=== PATIENT | female | born 1990 | race Caucasian/White ===

== ENCOUNTER → 2021-07-27 11:29 | Outpatient (CLI) | payer OTHER, SELFPAY ==
[2021-07-27 11:57] LABS: COVID19 -Nasal RAPID Negative (Negative)
== END ==
PROVIDERS: Visit Provider Nurse Practitioner
DX: Z20.822 Contact with and (suspected) exposure to COVID-19 (principal); R09.81 Nasal congestion
CPT/HCPCS: 87635

== ENCOUNTER → 2021-12-30 09:38 | Outpatient (CLI) | payer OTHER, SELFPAY ==
[2021-12-30 12:51] LABS: COVID19 - ADMIT (NP swab/PCR) Negative (Negative)
== END ==
PROVIDERS: PCP Family Medicine; Visit Provider Family Medicine Sleep Medicine
DX: Z20.822 Contact with and (suspected) exposure to COVID-19 (principal)
CPT/HCPCS: C9803; U0003; U0005

== ENCOUNTER → 2022-04-30 14:07 | Outpatient (CLI) | payer OTHER, SELFPAY ==
[2022-04-30 15:39] LABS: COVID-19 CEPHEID PCR (VTM/NP) Negative (Negative)
[2022-04-30 16:26] LABS: Influenza A - CEPHEID Flu A NEGATIVE (NEGATIVE); Influenza B - CEPHEID Flu B NEGATIVE (NEGATIVE)
== END ==
PROVIDERS: PCP Family Medicine; Visit Provider Physician Assistant
DX: J31.2 Chronic pharyngitis (principal); R05.9 Cough, unspecified; R50.9 Fever, unspecified
CPT/HCPCS: 0240U; 87070

== ENCOUNTER → 2022-05-15 11:08 | Outpatient (CLI) | payer OTHER, SELFPAY | PROVIDERS: PCP Family Medicine; Visit Provider Student in an Organized Health Care Education/Training Program | DX: N34.3 Urethral syndrome, unspecified (principal); N89.8 Other specified noninflammatory disorders of vagina | CPT/HCPCS: 87086; 87210 ==

== ENCOUNTER 2022-06-12 09:38 | Emergency (ER) | payer OTHER, SELFPAY ==
[2022-06-12 09:46] VITALS: BP 125/80; PULSE 82; RESP 16; TEMP 36.6; O2SAT 97; BMI 25.0
--- NOTE | 2022-06-12 11:36 | PC.NURSE ---
states she is allergic to the low dose aspirin and not the full dose (325 mg) to help her nasal polyps.
--- NOTE | 2022-06-12 11:47 | ED.HEATRA ---
HPI - Head Injury General Chief complaint: Head Injury Stated complaint: Hit head- nausea/vomiting- takes thinners Time Seen by Provider: 06/12/22 11:41 History of Present Illness HPI Narrative: Patient is a 31-year-old female with history of nasal polyps on aspirin presenting after head injury last night. 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 She did not lose consciousness but instantly felt nauseous and hit her head quite hard. She has had a persistent headache all night and all day. She continues to feel nauseous. She has no numbness tingling or weakness. Related Data Home Medications Medication Instructions Recorded Confirmed albuterol sulfate 90 mcg/actuation 2 puff inhalation Q6H PRN 10/06/21 04/30/22 aerosol inhaler aspirin 325 mg tablet 325 mg PO DAILY 10/06/21 04/30/22 dupixant PO Q2W 10/06/21 04/30/22 fluticasone 500 mcg-salmeterol 50 1 inh inhalation DAILY 10/06/21 04/30/22 mcg/dose blistr powdr for inhalation (Advair Diskus) fluticasone propionate 50 2 spray intranasal DAILY 10/06/21 04/30/22 mcg/actuation nasal spray,suspension (Flonase Allergy Relief) levonorgestrel 20 mcg/24 hours (7 intrauterine 10/06/21 04/30/22 yrs) 52 mg intrauterine device (Mirena) loratadine 10 mg tablet (Claritin) 10 mg PO DAILY 10/06/21 04/30/22 Previous Rx's Medication Instructions Recorded citalopram 20 mg tablet 20 mg PO DAILY #90 tabs 10/06/21 methylprednisolone 4 mg tablets in See Rx Instructions PO PER PKG DIR 04/30/22 a dose pack (Medrol (Marco)) #21 ea fluconazole 150 mg tablet 150 mg PO Q3D 2 doses #2 tabs 05/11/22 fluconazole 150 mg tablet 150 mg PO Q3D #5 tabs 05/15/22 ondansetron 4 mg disintegrating 4 mg PO Q8H PRN nausea and 06/12/22 tablet vomiting #10 tabs Allergies Allergy/AdvReac Type Severity Reaction Status Date / Time aspirin Allergy Severe Head Verified 05/15/22 11:15 pressure Review of Systems Review of Systems Narrative: GENERAL: Denies chills, fatigue, malaise, fever, sweats, travel HEENT: Denies sinus pain, ear pain, sore throat, difficulty swallowing, neck pain RESPIRATORY: Denies dyspnea, cough, wheezing, hemoptysis, sputum. CARDIOVASCULAR: Denies chest pain, palpitations, orthopnea, edema GASTROINTESTINAL: + nausea : Denies dysuria, frequency, incontinence, hematuria, urinary retention, flank pain. MUSCULOSKELETAL: Denies weakness, joint pain, or bony pain SKIN: No rash, no erythema, no pruritus NEUROLOGIC:+ head injury Denies weakness, dizziness, headache, numbness, change in speech, confusion PSYCHIATRIC: No concerning psychosocial issues. 12 point review of systems is negative except for those stated above and HPI Patient History Medical History Anxiety Asthma Nasal polyposis Social History Smoking Status: Never smoker Smoking Status: Never smoker Exam Initial Vital Signs Initial Vital Signs: Vital Signs Temperature 97.9 F 06/12/22 09:46 Pulse Rate 82 06/12/22 09:46 Respiratory Rate 16 06/12/22 09:46 Blood Pressure 125/80 06/12/22 09:46 Pulse Oximetry 97 06/12/22 09:46 Oxygen Delivery Method 06/12/22 09:46 GENERAL: Alert pleasant 31-year-old and in no acute distress. HEENT: Head atraumatic, no contusions depressions abrasion laceration EOMI, pupils reactive, face symmetric, moist mucous membranes EARS: Tympanic membranes visualized, no erythema or bulging, no hemotympanum CARDIOVASCULAR: Regular rate and rhythm without murmurs, rubs or gallops. RESPIRATORY: Breath sounds equal bilaterally, no wheezes rales or rhonchi. ABDOMEN: Soft, nontender. Normoactive bowel sounds all 4 quadrants. No guarding or rebound. EXTREMITIES: Normal range of motion, no clubbing or edema. Neurovascularly intact NEUROLOGICAL: Alert and oriented x4.Normal gait and speech. Cranial nerves II through XII grossly intact. 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 Scores [employer] [place] coma scale eye opening: Spontaneous [place] coma scale verbal response: Orientated [place] coma scale motor response: Obey commands [place] coma scale total score: 15 Course Orders Ordered: ED Orders 06/12/22 11:53 CT head/brain wo con Stat Discontinued Medications Acetaminophen (Acetaminophen 325 Mg Tablet) 975 mg PO NOW ONE Stop: 06/12/22 11:54 Last Admin: 06/12/22 12:11 Dose: 975 mg Documented By: LETA Ondansetron HCl (Ondansetron 4 Mg Odt) 4 mg SL NOW ONE Stop: 06/12/22 11:54 Last Admin: 06/12/22 12:11 Dose: 4 mg Documented By: LETA Vital Signs Vital signs: Vital Signs - 8 hr 06/12/22 12:34 Respiratory Rate 18 Blood Pressure 134/59 L MDM - Head Injury Imaging Data CT scan - head: Radiologist's Impression: Carmella Roy MR#: [id number] : 1990 Acct:[id number] Age/Sex: 31 / F Date of Service: 06/12/22 Loc: ED Accession Number: [id number] ?? Procedure: CT head/brain wo con Ordering Provider: Regine Fang D.O. PROCEDURE:? CT HEAD/BRAIN WO CON ? INDICATIONS:? head injury ? TECHNIQUE:? Noncontrast 4.5 mm thick angled axial sections acquired from the foramen magnum to the vertex, with coronal and sagittal reformats.? For radiation dose reduction, the following was used:? automated exposure control, adjustment of mA and/or kV according to patient size.? ? COMPARISON:? None. ? FINDINGS:? Image quality:? Excellent.? ? CSF spaces:? Basal cisterns are patent.? No extra-axial fluid collections.? Ventricles are normal in size and shape.? ? Brain:? No midline shift.? No intracranial masses or hemorrhage.? Hensley-white matter interface is normal.? Ossification can be seen along the anterior falx. ? Skull and face:? Calvarium and visualized facial bones are intact, without suspicious lesions.? ? Sinuses:? Visualized sinuses and mastoids are clear.? ? IMPRESSION:? No acute intracranial hemorrhage is seen.? ? No acute intracranial process is seen.? ? ? Dictated by: Ha Sahu M.D. on 06/12/2022 at 11:12 ? ? MDM Narrative Medical decision making narrative: Patient has worsening headache persistent nausea. Seems low mechanism for any intracranial hemorrhage however she is on aspirin. Head CT is fortunately negative. She is no cranial nerve deficits. Concussion syndrome is likely. Patient is reassured. Given strict return precautions and discharged home. Discharge Plan Departure Patient Disposition: Home Clinical Impression: Concussion syndrome Activity Restrictions/Additional Instructions: *You have been diagnosed with concussion syndrome *What to do: Says that he hit her head pretty hard. Is likely have a very minor concussion. Recommend medications and close monitoring. CT scan today is negative. *Continue to take medications as directed Zofran 4 mg every 8 hours needed for nausea vomiting Tylenol 1000 mg every 6 hours if needed for [id number] pain *Follow up with your primary care provider in 2-3 days or call [phone] *Return to ER if you should have increasing headache persistent vomiting weakness numbness tingling or any new, worsening or concerning symptoms Prescriptions: New ondansetron 4 mg tablet,disintegrating 4 mg PO Q8H PRN (Reason: nausea and vomiting) Qty: 10 0RF No Action methylprednisolone [Medrol (Marco)] 4 mg tablets,dose pack See Rx Instructions PO PER PKG DIR Qty: 21 0RF Rx Instructions: PO PER PKG DIR dupixant PO Q2W fluticasone propion-salmeterol [Advair Diskus] 500-50 mcg/dose blister with device 1 inh inhalation DAILY fluconazole 150 mg tablet 150 mg PO Q3D Qty: 5 0RF Rx Instructions: may repeat second dose 72 hrs after first dose if symptoms persist fluconazole 150 mg tablet 150 mg PO Q3D Qty: 2 0RF Rx Instructions: may repeat second dose 72 hrs after first dose if symptoms persist aspirin 325 mg tablet 325 mg PO DAILY loratadine [Claritin] 10 mg tablet 10 mg PO DAILY fluticasone propionate [Flonase Allergy Relief] 50 mcg/actuation spray,suspension 2 spray intranasal DAILY Rx Instructions: administer into each nostril albuterol sulfate 90 mcg/actuation HFA aerosol inhaler 2 puff inhalation Q6H PRN Mirena 20 mcg/24 hours (7 yrs) 52 mg intrauterine device intrauterine citalopram 20 mg tablet 20 mg PO DAILY Qty: 90 3RF Referrals: Samson Whitaker MD [Primary Care Provider] - Visit Report Forms: Patient Portal/API
--- NOTE | 2022-06-12 11:53 | DI.CT.S_ITS ---
PROCEDURE: CT HEAD/BRAIN WO CON INDICATIONS: head injury TECHNIQUE: Noncontrast 4.5 mm thick angled axial sections acquired from the foramen magnum to the vertex, with coronal and sagittal reformats. For radiation dose reduction, the following was used: automated exposure control, adjustment of mA and/or kV according to patient size. COMPARISON: None. FINDINGS: Image quality: Excellent. CSF spaces: Basal cisterns are patent. No extra-axial fluid collections. Ventricles are normal in size and shape. Brain: No midline shift. No intracranial masses or hemorrhage. Hensley-white matter interface is normal. Ossification can be seen along the anterior falx. Skull and face: Calvarium and visualized facial bones are intact, without suspicious lesions. Sinuses: Visualized sinuses and mastoids are clear. IMPRESSION: No acute intracranial hemorrhage is seen. No acute intracranial process is seen. Dictated by: Ha Sahu M.D. on 06/12/2022 at 11:12 Approved by: Ha Sahu M.D. on 06/12/2022 at 11:13
[2022-06-12] MEDS: ONDANSETRON 4 MG ODT SL (12:11)
[2022-06-12] MEDS: ACETAMINOPHEN 325 MG TABLET 975 MG PO (12:11)
[2022-06-12 12:34] VITALS: BP 134/59; RESP 18
== END 2022-06-12 12:35 | disposition home or self-care (01) ==
PROVIDERS: Emergency Provider Emergency Medicine; PCP Family Medicine
DX: F07.81 Postconcussional syndrome (principal); W22.8XXA Striking against or struck by other objects, initial encounter; Z79.82 Long term (current) use of aspirin
CPT/HCPCS: 70450; 99283; 99284

== ENCOUNTER → 2022-07-17 07:40 | Outpatient (CLI) | payer OTHER, SELFPAY ==
--- NOTE | 2022-08-01 16:57 | PM.CARDMON.1 ---
Clinical Implementation Specialist Report Referral & Results Date Patient Seen: 07/17/22 Requesting provider: Dann Marquez Indication: Palpitations Duration of monitoring (days): 7 Diary information: There were 9 patient triggered events and 6 patient diary entries Patient triggered events were variably associated with (within 45 seconds) sinus rhythm and PACs Patient diary events were associated with sinus rhythm only Data: Minimum heart rate identified was 47 beats per minute at 06:31 on 07/18/2022 Maximum heart rate was sinus and was 171 beats per minute at 23:16 on 07/23/2022 Less than 1% of identified beats were ventricular or supraventricular ectopic in origin, which would classify them as rare. There was 1 very brief run of SVT that was 5 beats in duration at a rate of 154 beats per minute There were no pauses of 3 seconds or longer, or episodes of atrial fibrillation identified on this study Impression: 6+ day cardiac technologist demonstrating rare PACs and PVCs. Based on patient events patient's sense of palpitations most likely associated with rare PACs Clinical correlation suggested
== END ==
PROVIDERS: PCP Family Medicine; Referring Provider Pediatrics; Visit Provider Pediatrics
DX: R00.2 Palpitations (principal)
CPT/HCPCS: 93242; 93244

== ENCOUNTER 2023-01-01 21:32 | Emergency (ER) | payer OTHER, SELFPAY ==
[2023-01-01 21:54] VITALS: BP 122/79; PULSE 122; RESP 20; TEMP 36.6; O2SAT 98; BMI 26.3
[2023-01-01 22:09] VITALS: BP 138/69; RESP 19
[2023-01-01] MEDS: ONDANSETRON 4 MG/2 ML INJ IV (22:15)
[2023-01-01] MEDS: SODIUM CHLORIDE 0.9% 1,000 ML 1000 ML IV ×2 (22:15→23:15)
[2023-01-01 22:24] LABS: Add Manual Diff / Slide Review NO; Basophils Absolute Auto 100 /uL (0-100); Basophils Percent Auto 0.9 % (0-2); Eosinophils Absolute Auto 300 /uL (0-450); Eosinophils Percent Auto 3.4 % (2-4); Lymphocytes Absolute Auto 600 /uL (1100-4500); Lymphocytes Percent Auto 7.4 % (25-40); Mean Corpuscular HGB Conc 34.2 % (30-36); Mean Corpuscular Hemoglobin 30.1 PG (26-34); Mean Corpuscular Volume 87.8 fL (80-100); Monocytes Absolute Auto 300 /uL (0-900); Monocytes Percent Auto 4.4 % (3-14); Neutrophils Absolute Auto 6300 /uL (1500-7000); Neutrophils Percent Auto 83.9 % (50-75); Platelet Count 186 X10^3/uL (150-400); Red Blood Cell Count 4.67 X10^6/uL (4.0-5.2); Red Cell Distribution Width 12.3 % (11.6-14.8); White Blood Cell Count 7.5 X10^3/uL (4.5-11.0)
[2023-01-01 22:30] VITALS: BP 124/83; PULSE 82; RESP 22
[2023-01-01 22:32] LABS: Alanine Aminotransferase 17 IU/L (<35); Albumin 4.5 g/dL (3.5-5.0); Albumin Globulin Ratio 1.7 (1.0-2.8); Alkaline Phosphatase 63 U/L (38-126); Aspartate Aminotransferase 25 IU/L (14-36); BUN Creatinine Ratio 20.3 (6-22); Bilirubin Total 0.9 mg/dL (0.2-1.3); Blood Urea Nitrogen 12 mg/dL (7-17); Calcium 8.8 mg/dL (8.4-10.2); Carbon Dioxide 23 mmol/L (22-32); Chloride 102 mmol/L (98-107); Estimated Glomerular Filt Rate > 60 mL/min (>60); Globulin 2.7 g/dL (1.7-4.1); Glucose 116 mg/dL (70-100); HEMOLYSIS 18 (0-50); Lipase 32 U/L (23-300); Potassium 3.6 mmol/L (3.4-5.1); Sodium 137 mmol/L (137-145); Total Protein 7.2 g/dL (6.3-8.2)
[2023-01-01 22:36] LABS: Bacteria Urine Many (>30); RBC Urine None Seen (0-5/HPF); Squamous Epithelial Cell Urine 10-30 /HPF (0-5/HPF); WBC Urine 1-5/HPF (0-5/HPF)
[2023-01-01 22:37] LABS: Culture Indicated Urine Specimen Cultured
[2023-01-01 23:00] VITALS: BP 123/67; PULSE 83; RESP 15
[2023-01-01] MEDS: PANTOPRAZOLE 40 MG VIAL IV (23:15)
[2023-01-01 23:22] LABS: Influenza A - CEPHEID Flu A NEGATIVE (NEGATIVE); Influenza B - CEPHEID Flu B NEGATIVE (NEGATIVE); Respiratory Syncytial Virus Negative (Negative)
[2023-01-01 23:33] LABS: COVID-19 CEPHEID 4-PLEX PCR Negative (Negative)
--- NOTE | 2023-01-01 23:34 | PC.NURSE ---
Pt reporting substernal, burning chest pain that is relieved slightly with belching. Provider aware.
[2023-01-01 23:36] VITALS: PULSE 98; RESP 20
[2023-01-01 23:44] VITALS: BP 118/64; PULSE 92; RESP 16; O2SAT 98
[2023-01-02] VITALS (13 sets, daily range): BP systolic 100–121; BP diastolic 55–73; PULSE 68–111; RESP 14; O2SAT 95–99
--- NOTE | 2023-01-02 00:07 | ED.ABDPAIN ---
HPI - Abdominal Pain General Chief Complaint: Abdominal Pain Stated Complaint: abd. pain/vomiting/diarrhea Time Seen by Provider: 01/01/23 21:37 Source: patient Mode of arrival: Ambulatory History of Present Illness HPI narrative: 32-year-old female nonsmoker with history of asthma, anxiety presents with her significant other and a chief complaint of relatively sudden onset generalized abdominal pain with multiple episodes of nausea, vomiting and diarrhea over the course of the day. She states that her discomfort is generalized, perhaps worse in the lower part of her abdomen and seems to build until she has either an episode of vomiting or diarrhea which point it improves for 5-15 minutes before building again. She denies any history of the same. She states she is not been on antibiotics recently, denies travel, bad food or exposure to other ill persons. She has become dizzy, weak and lightheaded. She feels fatigued and generally unwell Related Data Home Medications Medication Instructions Recorded Confirmed aspirin 325 mg tablet 325 mg PO DAILY 10/06/21 07/06/22 fluticasone 500 mcg-salmeterol 50 1 inh inhalation DAILY 10/06/21 07/06/22 mcg/dose blistr powdr for inhalation (Advair Diskus) fluticasone propionate 50 2 spray intranasal DAILY 10/06/21 07/06/22 mcg/actuation nasal spray,suspension (Flonase Allergy Relief) levonorgestrel 20 mcg/24 hours (8 intrauterine 10/06/21 07/06/22 yrs) 52 mg intrauterine device (Mirena) loratadine 10 mg tablet (Claritin) 10 mg PO DAILY 10/06/21 07/06/22 dupilumab 300 mg/2 mL subcutaneous syringe SUBCUT 06/22/22 07/06/22 syringe (Dupixent) Previous Rx's Medication Instructions Recorded methylprednisolone 4 mg tablets in See Rx Instructions PO PER PKG DIR 04/30/22 a dose pack (Medrol (Marco)) #21 ea cyclobenzaprine 5 mg tablet 5 mg PO TID PRN muscle spasm #20 07/06/22 tabs albuterol sulfate 90 mcg/actuation 2 puff inhalation Q6H PRN 08/03/22 aerosol inhaler bronchospasm #8.5 grams citalopram 20 mg tablet 20 mg PO DAILY #90 tabs 08/31/22 ondansetron 4 mg disintegrating 4 mg PO TID-QID PRN nausea and 01/02/23 tablet vomiting #10 tabs pantoprazole 40 mg tablet,delayed 40 mg PO DAILY #30 tabs 01/02/23 release (Protonix) Allergies Allergy/AdvReac Type Severity Reaction Status Date / Time aspirin Allergy Severe Head Verified 06/22/22 09:49 pressure ibuprofen [From Motrin] Allergy Verified 01/01/23 21:54 NSAIDS (Non-Steroidal Allergy Verified 01/01/23 21:54 Anti-Inflamma Review of Systems Review of Systems Narrative: GENERAL: See HPI HEENT: Denies sinus pain, ear pain, sore throat, difficulty swallowing, dizziness. RESPIRATORY: Denies dyspnea, cough, wheezing, hemoptysis, sputum. CARDIOVASCULAR: Denies chest pain, palpitations, orthopnea, edema, GASTROINTESTINAL: See HPI : Denies dysuria, frequency, incontinence, hematuria, urinary retention. MUSCULOSKELETAL: denies weakness, joint pain, or bony pain SKIN: Denies rash, skin lesions, or other NEUROLOGIC: Denies weakness, headache, numbness, change in speech, confusion, seizures, incoordination. PSYCHIATRIC: No concerning psychosocial issues. 12 point review of systems is negative except for those stated above Patient History Medical History Anxiety Asthma Nasal polyposis Social History Smoking Status: Never smoker Smoking Status: Never smoker alcohol intake frequency: holidays/special occasions only Substance Use Type: does not use Exam Narrative Exam Narrative: GENERAL: [32] year old patient appears stated age. Well-developed patient, in mild distress. Obviously feeling unwell HEAD: Atraumatic. Normocephalic. EYES: Pupils equal round and reactive. Extraocular motions intact. No scleral icterus. No injection or drainage. ENT: Dry mucous membranes Nose without bleeding, purulent drainage. Throat without erythema, tonsillar hypertrophy or exudate. Airway patent. NECK: Trachea midline. Non tender CARDIOVASCULAR: Tachycardic but regular rhythm without murmurs, gallops, or rubs. RESPIRATORY: Clear to auscultation. Breath sounds equal bilaterally. No wheezes, rales, or rhonchi. GASTROINTESTINAL: Abdomen soft, increased bowel sounds throughout, generalized tenderness EXTREMITIES: No edema or joint tenderness. BACK: Nontender without deformity or crepitance. No flank tenderness. NEURO: AOx3. SKIN: No rash or erythema of visible areas Initial Vital Signs Initial Vital Signs: Vital Signs Temperature 97.9 F 01/01/23 21:54 Pulse Rate 122 H 01/01/23 21:54 Respiratory Rate 20 01/01/23 21:54 Blood Pressure 122/79 01/01/23 21:54 Pulse Oximetry 98 01/01/23 21:54 Oxygen Delivery Method 01/01/23 21:54 Course Orders Ordered: ED Orders 01/01/23 22:03 GI Panel (Film Array) Stat EKG-12 Lead Stat 01/01/23 22:10 Urine Culture Stat Urine Microscopic Stat 01/01/23 22:15 Complete Blood Count AUTO DIFF Stat Comprehensive Metabolic Panel Stat Lipase Stat 01/01/23 22:41 Covid-19 + FLU A/B + RSV - PCR Stat 01/02/23 00:50 CT abdomen pelvis w con Stat Ondansetron HCl (Ondansetron 4 Mg Odt) 4 mg PO NOW PRN PRN Reason: Nausea And Vomiting Last Admin: 01/02/23 03:49 Dose: 4 mg Documented By: MARIANA Ondansetron HCl (Ondansetron 4 Mg/2 Ml Inj) 4 mg IV NOW PRN PRN Reason: Nausea And Vomiting Last Admin: 01/01/23 22:15 Dose: 4 mg Documented By: INES Discontinued Medications Sodium Chloride (Normal Saline 0.9%) 1,000 mls @ 1,000 mls/hr IV BOLUS ONE Stop: 01/01/23 23:03 Last Infusion: 01/01/23 23:13 Dose: 0 mls/hr Documented By: Admin: 01/01/23 22:15 Dose: 1,000 mls/hr Documented By: INES Sodium Chloride (Normal Saline 0.9%) 1,000 mls @ 1,000 mls/hr IV BOLUS ONE Stop: 01/02/23 00:08 Last Infusion: 01/02/23 00:18 Dose: 0 mls/hr Documented By: Admin: 01/01/23 23:15 Dose: 1,000 mls/hr Documented By: INES Lactated Ringer's (Lactated Ringers) 1,000 mls @ 1,000 mls/hr IV BOLUS ONE Stop: 01/02/23 01:49 Last Infusion: 01/02/23 02:20 Dose: 0 mls/hr Documented By: Admin: 01/02/23 00:58 Dose: 1,000 mls/hr Documented By: MARIANA Ondansetron HCl (Ondansetron 4 Mg Odt Prepack) 1 bottle MISC SEEINSTR ONE Stop: 01/02/23 03:45 Pantoprazole Sodium (Pantoprazole 40 Mg Vial) 40 mg IV NOW ONE Stop: 01/01/23 23:10 Last Admin: 01/01/23 23:15 Dose: 40 mg Documented By: INES Reevaluation(s) Reevaluation #1: Patient feeling better after fluids, still lightheaded and weak, still tachycardic, repeat fluids ordered Vital Signs Vital signs: Vital Signs - 8 hr 01/01/23 21:54 01/01/23 22:09 01/01/23 22:09 Temperature 97.9 F Pulse Rate 122 H Pulse Rate [Orthostatic Lying] Pulse Rate [Orthostatic Sitting] Pulse Rate [Orthostatic Standing] Respiratory Rate 20 19 Blood Pressure 122/79 138/69 Blood Pressure [Orthostatic Lying] Blood Pressure [Orthostatic Sitting] Blood Pressure [Orthostatic Standing] Pulse Oximetry 98 Oxygen Delivery Method Room Air 01/01/23 22:30 01/01/23 22:30 01/01/23 23:00 Temperature Pulse Rate 82 Pulse Rate [Orthostatic Lying] Pulse Rate [Orthostatic Sitting] Pulse Rate [Orthostatic Standing] Respiratory Rate 22 Blood Pressure 124/83 123/67 Blood Pressure [Orthostatic Lying] Blood Pressure [Orthostatic Sitting] Blood Pressure [Orthostatic Standing] Pulse Oximetry Oxygen Delivery Method 01/01/23 23:00 01/01/23 23:36 01/01/23 23:44 Temperature Pulse Rate 83 98 H Pulse Rate [Orthostatic Lying] Pulse Rate [Orthostatic Sitting] Pulse Rate [Orthostatic Standing] Respiratory Rate 15 20 Blood Pressure 118/64 Blood Pressure [Orthostatic Lying] Blood Pressure [Orthostatic Sitting] Blood Pressure [Orthostatic Standing] Pulse Oximetry Oxygen Delivery Method 01/01/23 23:44 01/02/23 00:00 01/02/23 00:30 Temperature Pulse Rate 92 H 94 H 95 H Pulse Rate [Orthostatic Lying] Pulse Rate [Orthostatic Sitting] Pulse Rate [Orthostatic Standing] Respiratory Rate 16 Blood Pressure Blood Pressure [Orthostatic Lying] Blood Pressure [Orthostatic Sitting] Blood Pressure [Orthostatic Standing] Pulse Oximetry 98 98 Oxygen Delivery Method 01/02/23 01:00 01/02/23 01:56 01/02/23 02:00 Temperature Pulse Rate 95 H 68 86 Pulse Rate [Orthostatic Lying] Pulse Rate [Orthostatic Sitting] Pulse Rate [Orthostatic Standing] Respiratory Rate 14 Blood Pressure Blood Pressure [Orthostatic Lying] Blood Pressure [Orthostatic Sitting] Blood Pressure [Orthostatic Standing] Pulse Oximetry 95 Oxygen Delivery Method 01/02/23 02:19 01/02/23 02:19 01/02/23 02:30 Temperature Pulse Rate 88 Pulse Rate [Orthostatic Lying] Pulse Rate [Orthostatic Sitting] Pulse Rate [Orthostatic Standing] Respiratory Rate Blood Pressure 119/73 114/56 L Blood Pressure [Orthostatic Lying] Blood Pressure [Orthostatic Sitting] Blood Pressure [Orthostatic Standing] Pulse Oximetry 99 Oxygen Delivery Method 01/02/23 02:30 01/02/23 03:00 01/02/23 03:00 Temperature Pulse Rate 85 83 Pulse Rate [Orthostatic Lying] Pulse Rate [Orthostatic Sitting] Pulse Rate [Orthostatic Standing] Respiratory Rate Blood Pressure 121/67 Blood Pressure [Orthostatic Lying] Blood Pressure [Orthostatic Sitting] Blood Pressure [Orthostatic Standing] Pulse Oximetry 97 96 Oxygen Delivery Method Room Air 01/02/23 03:46 Temperature Pulse Rate Pulse Rate [Orthostatic Lying] 95 H Pulse Rate [Orthostatic Sitting] 98 H Pulse Rate [Orthostatic Standing] 102 H Respiratory Rate Blood Pressure Blood Pressure [Orthostatic Lying] 119/68 Blood Pressure [Orthostatic Sitting] 115/64 Blood Pressure [Orthostatic Standing] 100/59 L Pulse Oximetry Oxygen Delivery Method MDM - Abdominal Pain Lab Data 01/01/23 22:15 01/01/23 22:15 Labs: Lab Results 01/01/23 01/01/23 01/01/23 Range/Units 22:10 22:15 22:15 WBC 7.5 (4.5-11.0) X10^3/uL RBC 4.67 (4.0-5.2) X10^6/uL Hgb 14.0 (12.0-16.0) g/dL Hct 41.0 (36-46) % MCV 87.8 (80-100) fL MCH 30.1 (26-34) PG MCHC 34.2 (30-36) % RDW 12.3 (11.6-14.8) % Plt Count 186 (150-400) X10^3/uL Neut % (Auto) 83.9 H (50-75) % Lymph % (Auto) 7.4 L (25-40) % [place] % (Auto) 4.4 (3-14) % Eos % (Auto) 3.4 (2-4) % Baso % (Auto) 0.9 (0-2) % Neut # (Auto) 6300 (0035-9758) /uL Lymph # (Auto) 600 L (7636-7212) /uL [place] # (Auto) 300 (0-900) /uL Eos # (Auto) 300 (0-450) /uL Baso # (Auto) 100 (0-100) /uL Sodium 137 (137-145) mmol/L Potassium 3.6 (3.4-5.1) mmol/L Chloride 102 (98-107) mmol/L Carbon Dioxide 23 (22-32) mmol/L BUN 12 (7-17) mg/dL Creatinine 0.59 (0.52-1.04) mg/dL Estimated GFR > 60 (>60) mL/min BUN/Creatinine Ratio 20.3 (6-22) Glucose 116 H (70-100) mg/dL Calcium 8.8 (8.4-10.2) mg/dL Total Bilirubin 0.9 (0.2-1.3) mg/dL AST 25 (14-36) IU/L ALT 17 (<35) IU/L Alkaline Phosphatase 63 (38-126) U/L Total Protein 7.2 (6.3-8.2) g/dL Albumin 4.5 (3.5-5.0) g/dL Globulin 2.7 (1.7-4.1) g/dL Albumin/Globulin Ratio 1.7 (1.0-2.8) Lipase 32 (23-300) U/L Urine RBC None seen (0-5/HPF) Urine WBC 1-5/hpf (0-5/HPF) Ur Squamous Epith Cells 10-30 /hpf H (0-5/HPF) Urine Bacteria Many (>30) H (None) Ur Culture Indicated? Specimen cultured SARS-CoV-2 (PCR) (Negative) Influenza A (RT-PCR) (NEGATIVE) Influenza B (RT-PCR) (NEGATIVE) RSV (PCR) (Negative) 01/01/23 Range/Units 22:41 WBC (4.5-11.0) X10^3/uL RBC (4.0-5.2) X10^6/uL Hgb (12.0-16.0) g/dL Hct (36-46) % MCV (80-100) fL MCH (26-34) PG MCHC (30-36) % RDW (11.6-14.8) % Plt Count (150-400) X10^3/uL Neut % (Auto) (50-75) % Lymph % (Auto) (25-40) % [place] % (Auto) (3-14) % Eos % (Auto) (2-4) % Baso % (Auto) (0-2) % Neut # (Auto) (6524-2797) /uL Lymph # (Auto) (2068-8448) /uL [place] # (Auto) (0-900) /uL Eos # (Auto) (0-450) /uL Baso # (Auto) (0-100) /uL Sodium (137-145) mmol/L Potassium (3.4-5.1) mmol/L Chloride (98-107) mmol/L Carbon Dioxide (22-32) mmol/L BUN (7-17) mg/dL Creatinine (0.52-1.04) mg/dL Estimated GFR (>60) mL/min BUN/Creatinine Ratio (6-22) Glucose (70-100) mg/dL Calcium (8.4-10.2) mg/dL Total Bilirubin (0.2-1.3) mg/dL AST (14-36) IU/L ALT (<35) IU/L Alkaline Phosphatase (38-126) U/L Total Protein (6.3-8.2) g/dL Albumin (3.5-5.0) g/dL Globulin (1.7-4.1) g/dL Albumin/Globulin Ratio (1.0-2.8) Lipase (23-300) U/L Urine RBC (0-5/HPF) Urine WBC (0-5/HPF) Ur Squamous Epith Cells (0-5/HPF) Urine Bacteria (None) Ur Culture Indicated? SARS-CoV-2 (PCR) Negative (Negative) Influenza A (RT-PCR) Flu a negative (NEGATIVE) Influenza B (RT-PCR) Flu b negative (NEGATIVE) RSV (PCR) Negative (Negative) Point of care testing: Point of Care Testing Test Results Negative Urine Dip Bedside Urine Glucose Negative Bedside Urine Bilirubin + 1 Bedside Urine Ketone +++ 80 Urine Specific [place] 1.025 Bedside Urine Occult Blood - Negative Bedside Urine pH 6.0 Bedside Urine Protein + 30 Bedside Urine Urobilinogen +/- 1mg Bedside Urine Nitrite - Negative Bedside Urine Leukocytes + 70 Esterase MDM Narrative Medical decision making narrative: CC: 32-year-old female with nausea, vomiting, diarrhea and colicky abdominal pain Complicating co-morbidities: none known Data collected from: patient Medical records reviewed: prior ED notes Differential considered, but not limited to: Bowel obstruction infectious diarrhea, colitis versus other Exam documented above, pertinent findings include: Initially tachycardic, greatly improved with flu is, heart rate regular, lungs clear, abdomen soft, nontender, bowel sounds present Lab Test results independently reviewed as above. Pertinent findings: No significant leukocytosis or left shift, no electrolyte abnormality or renal abnormality Independently reviewed EKG: [2219 EKG is normal sinus rhythm rate [ 85] and free of any signs of ischemia or ectopy. No ST segmental elevation or depression. No T wave inversions Imaging studies independently reviewed: No significant abnormality, there is subtle fluid possibly in endometrial segment, patient without pelvic pain, vaginal bleeding or discharge Treatments: Fluids, Zofran, Protonix Re-evaluations: Significant improvement after above-stated therapies Discussion: Patient with colicky abdominal pain, nausea vomiting, diarrhea in the absence of travel, antibiotics, bad food or other ill persons. Significant improvement with above-stated therapies, able to tolerate orals, pain well controlled. Patient unable to produce stool over the duration of her visit. Disposition: see below, along with detailed discharge instructions that have been reviewed with patient as well as indications for ED re-evaluation and additional outpatient follow up Discharge Plan Departure Patient Disposition: Home Clinical Impression: Diarrhea, Abdominal pain, Vomiting Instructions: Diarrhea, DI for Abdominal Pain-Adult, DI for Vomiting -- Adult Activity Restrictions/Additional Instructions: *You have been diagnosed with [abdominal pain, vomiting and diarrhea] * As we discussed your history and physical exam as well as labs and imaging are very reassuring. There is no evidence of any severe diagnoses that would require a specific or immediate intervention. *What to do: *Please continue to take your regular medications as directed. [x ] New medication prescriptions sent to your pharmacy: [[facility] ] *Please follow up with your primary care provider in 2-3 days, call for an appointment. Let them know you were seen in the Emergency Department and that we ask that you be seen in follow up. We will electronically transmit a record of today's note if your PCP is in our system *Please consider a clear liquid diet for the next 24-48 hours and then slowly advance to regular as tolerated. Also, try to avoid alcohol, nicotine, caffeine, spicy, acidic or fatty foods as this may worsen your symptoms *If you do not have a primary care provider please contact the [facility] Resource line at [phone]. They will ask some questions about your medical history and help get you set up with a doctor in the community. *Return to Emergency Department if you should have any new, worsening or concerning symptoms, such as [fever greater than 101 F, shaking chills, worsening pain, persistent vomiting or other bothersome symptoms] Prescriptions: New pantoprazole [Protonix] 40 mg tablet,delayed release (DR/EC) 40 mg PO DAILY Qty: 30 0RF ondansetron 4 mg tablet,disintegrating 4 mg PO TID-QID PRN (Reason: nausea and vomiting) Qty: 10 0RF No Action methylprednisolone [Medrol (Marco)] 4 mg tablets,dose pack See Rx Instructions PO PER PKG DIR Qty: 21 0RF Rx Instructions: PO PER PKG DIR fluticasone propion-salmeterol [Advair Diskus] 500-50 mcg/dose blister with device 1 inh inhalation DAILY citalopram 20 mg tablet 20 mg PO DAILY Qty: 90 3RF aspirin 325 mg tablet 325 mg PO DAILY loratadine [Claritin] 10 mg tablet 10 mg PO DAILY fluticasone propionate [Flonase Allergy Relief] 50 mcg/actuation spray,suspension 2 spray intranasal DAILY Rx Instructions: administer into each nostril Mirena 20 mcg/24 hours (7 yrs) 52 mg intrauterine device intrauterine cyclobenzaprine 5 mg tablet 5 mg PO TID PRN (Reason: muscle spasm) Qty: 20 0RF albuterol sulfate 90 mcg/actuation HFA aerosol inhaler 2 puff inhalation Q6H PRN (Reason: bronchospasm) Qty: 8.5 3RF Dupixent Syringe 300 mg/2 mL syringe SUBCUT Referrals: Samson Whitaker MD [Primary Care Provider] - Stand Alone Forms: Patient Portal/API
--- NOTE | 2023-01-02 00:50 | DI.CT.S_ITS ---
PROCEDURE: CT ABDOMEN PELVIS W CON INDICATIONS: severe RLQ pain, vomiting, tachycardia TECHNIQUE: After the administration of IV contrast, axial sections were acquired from the lung bases to the pubic symphysis. Coronal and sagittal reformats were performed. For radiation dose reduction, the following was used: automated exposure control, adjustment of mA and/or kV according to patient size. COMPARISON: None. FINDINGS: Image quality: Excellent. Lung bases: Unremarkable. Heart: Heart is normal in size. ABDOMEN: Liver: No mass lesion. There is minimal periportal edema. Gallbladder: Within normal limits without calcified gallstones. Biliary ducts: No biliary ductal dilatation. Pancreas: Unremarkable. Spleen: Normal in size. Adrenal Glands: No adrenal nodules. Kidneys and Ureters: No hydronephrosis. Stomach and Bowel: Stomach, small bowel loops, and colon are normal in caliber and wall thickness. The appendix is normal in appearance. Peritoneum: No abnormal intraperitoneal fluid. No free air. Ventral Wall: No hernia. Abdominal Nodes: No retroperitoneal or mesenteric adenopathy by size criteria. Vessels: Aorta and inferior vena cava are normal in size. PELVIS: Pelvic Organs: An IUD appears in appropriate position, extending into the fundal endometrium. There is a small amount of heterogeneous endometrial fluid within the lower uterine segment with mild immediate enhancement. Bladder: Unremarkable. Pelvic Nodes: No enlarged lymph nodes. Miscellaneous: No inguinal hernias are seen. Bones: Visualized osseous structures demonstrate no suspicious focal lesions. IMPRESSION: 1. No evidence of appendicitis. 2. Small amount of endometrial fluid in the lower uterine segment with suggestion of mild endometrial enhancement. The findings may reflect an endometritis and correlation is recommended clinically. Further evaluation may be obtained with ultrasound if indicated. Dictated by: Chris Ramires M.D. on 01/02/2023 at 2:35 Approved by: Chris Ramires M.D. on 01/02/2023 at 2:38
[2023-01-02] MEDS: LACTATED RINGERS 1,000 ML 1000 ML IV (00:58)
[2023-01-02] MEDS: ONDANSETRON 4 MG ODT PO (03:49)
[2023-01-02] MEDS: ONDANSETRON 4 MG ODT PREPACK 1 BOTTLE MISC (03:56)
== END 2023-01-02 04:07 | disposition home or self-care (01) ==
PROVIDERS: Emergency Provider Emergency Medicine; PCP Family Medicine
DX: R10.84 Generalized abdominal pain (principal); R11.2 Nausea with vomiting, unspecified; R19.7 Diarrhea, unspecified; Z20.822 Contact with and (suspected) exposure to COVID-19
CPT/HCPCS: 0241U; 36415; 74177; 80053; 81003; 81015; 81025; 83690; 85025; 87086; 93005; 96361; 96374; 96375; 99284; C9113; J2405; Q9967

== ENCOUNTER → 2023-01-09 11:58 | Outpatient (CLI) | payer OTHER, SELFPAY ==
[2023-01-09 14:04] LABS: Urine N gonorrhoeae NOT DETECTED
[2023-01-09 14:07] LABS: Urine Chlamydia NOT DETECTED
== END ==
PROVIDERS: PCP Family Medicine; Referring Provider Nurse Practitioner Family; Visit Provider Nurse Practitioner Family
DX: Z20.2 Contact with and (suspected) exposure to infections with a predominantly sexual mode of transmission (principal)
CPT/HCPCS: 87491; 87591

== ENCOUNTER 2023-04-06 16:16 | Emergency (ER) | payer OTHER, SELFPAY ==
[2023-04-06] VITALS (8 sets, daily range): BP systolic 106–157; BP diastolic 54–77; PULSE 88–106; RESP 18–22; TEMP 36.6; O2SAT 92–100; BMI 26.9
--- NOTE | 2023-04-06 16:40 | DI.US.S_ITS ---
PROCEDURE: US ABDOMEN LIMITED INDICATIONS: ABDOMINAL PAIN RUQ TECHNIQUE: Real-time focused scanning was performed of the abdomen, with image documentation. COMPARISON: [facility], CT, CT ABDOMEN PELVIS W CON, 01/02/2023, 1:24. FINDINGS: The liver is normal in size and demonstrates no focal lesions. No findings of gallstones or sludge are seen. The gallbladder wall is not thickened, measuring 3 mm or less. No specific pericholecystic fluid is seen. The sonographic Bell sign is negative. There is no biliary dilatation, the common bile duct measures 3 mm. No significant pancreatic abnormality is seen on these images. IMPRESSION: The gallbladder demonstrates a normal sonographic appearance. No biliary dilatation is seen. Dictated by: Ha Sahu M.D. on 04/06/2023 at 17:10 Approved by: Ha Sahu M.D. on 04/06/2023 at 17:11
[2023-04-06] MEDS: ONDANSETRON 4 MG/2 ML INJ IV (16:41)
[2023-04-06 16:51] LABS: Add Manual Diff / Slide Review NO; Basophils Absolute Auto 0 /uL (0-100); Basophils Percent Auto 0.2 % (0-2); Eosinophils Absolute Auto 0 /uL (0-450); Eosinophils Percent Auto 0.4 % (2-4); Hematocrit 40.9 % (36-46); Hemoglobin 14.2 g/dL (12.0-16.0); Lymphocytes Absolute Auto 1000 /uL (1100-4500); Lymphocytes Percent Auto 10.1 % (25-40); Mean Corpuscular HGB Conc 34.7 % (30-36); Mean Corpuscular Hemoglobin 30.6 PG (26-34); Mean Corpuscular Volume 88.3 fL (80-100); Monocytes Absolute Auto 600 /uL (0-900); Monocytes Percent Auto 6.8 % (3-14); Neutrophils Absolute Auto 7800 /uL (1500-7000); Neutrophils Percent Auto 82.5 % (50-75); Platelet Count 225 X10^3/uL (150-400); Red Blood Cell Count 4.63 X10^6/uL (4.0-5.2); Red Cell Distribution Width 12.9 % (11.6-14.8); White Blood Cell Count 9.5 X10^3/uL (4.5-11.0)
[2023-04-06 17:06] LABS: Alanine Aminotransferase 18 IU/L (<35); Albumin 4.6 g/dL (3.5-5.0); Albumin Globulin Ratio 1.7 (1.0-2.8); Alkaline Phosphatase 69 U/L (38-126); Aspartate Aminotransferase 24 IU/L (14-36); BUN Creatinine Ratio 19.4 (6-22); Bilirubin Total 0.6 mg/dL (0.2-1.3); Blood Urea Nitrogen 13 mg/dL (7-17); Calcium 9.2 mg/dL (8.4-10.2); Carbon Dioxide 25 mmol/L (22-32); Chloride 99 mmol/L (98-107); Estimated Glomerular Filt Rate > 60 mL/min (>60); Globulin 2.7 g/dL (1.7-4.1); Glucose 126 mg/dL (70-100); HEMOLYSIS < 15 (0-50); Lipase 57 U/L (23-300); Potassium 3.7 mmol/L (3.4-5.1); Sodium 134 mmol/L (137-145); Total Protein 7.3 g/dL (6.3-8.2)
[2023-04-06 18:41] LABS: Ictotest Urine Negative (Negative)
[2023-04-06 18:49] LABS: RBC Urine None Seen (0-5/HPF); WBC Urine 1-5/HPF (0-5/HPF)
[2023-04-06 18:50] LABS: Bacteria Urine None Seen; Culture Indicated Urine Cult Not Indicated; Mucus Urine 1+ (Negative); Squamous Epithelial Cell Urine 1-5 /HPF (0-5/HPF)
[2023-04-06] MEDS: SODIUM CHLORIDE 0.9% 1,000 ML 1000 ML IV (19:30)
[2023-04-06] MEDS: ACETAMINOPHEN 325 MG TABLET 650 MG PO (19:30)
--- NOTE | 2023-04-06 19:40 | ED.ABDPAIN ---
HPI - Abdominal Pain <Vijaya Beal PA-C - Last Filed: 04/06/23 20:32> General Chief Complaint: Abdominal Pain Stated Complaint: Upper ABD cramping Time Seen by Provider: 04/06/23 18:47 Source: patient Mode of arrival: Ambulatory History of Present Illness HPI narrative: 32-year-old female with a history of asthma, anxiety, presents with concern for nausea vomiting diarrhea and crampy abdominal pain. Patient states that she started having symptoms around 730 this morning some abdominal cramping and diarrhea. By this afternoon she had continued to have fairly frequent diarrhea and developed vomiting. She did have breakfast this morning and felt okay when she initially woke up around 5:30 a.m., she works [employer] time. She states that she has been able to do some sips of fluids this afternoon and keep it down she does not feel like the pain she is having is associated specifically with the diarrhea or the vomiting becomes intense crampy waves goes up to about an 8/10 but this is brief and last no more than a minute or so and then improves. These cramps are mostly up higher in her belly but she is also felt some discomfort lower. She states she is mostly here because of this pain. She did not take anything at home for it. Denies fevers, chills, constant abdominal pain, dysuria or any other symptoms. Related Data Home Medications Medication Instructions Recorded Confirmed aspirin 325 mg tablet 325 mg PO DAILY 10/06/21 07/06/22 fluticasone 500 mcg-salmeterol 50 1 inh inhalation DAILY 10/06/21 07/06/22 mcg/dose blistr powdr for inhalation (Advair Diskus) fluticasone propionate 50 2 spray intranasal DAILY 10/06/21 07/06/22 mcg/actuation nasal spray,suspension (Flonase Allergy Relief) levonorgestrel 21 mcg/24 hours (8 intrauterine 10/06/21 07/06/22 yrs) 52 mg intrauterine device (Mirena) loratadine 10 mg tablet (Claritin) 10 mg PO DAILY 10/06/21 07/06/22 dupilumab 300 mg/2 mL subcutaneous syringe SUBCUT 06/22/22 07/06/22 syringe (Dupixent) Previous Rx's Medication Instructions Recorded methylprednisolone 4 mg tablets in See Rx Instructions PO PER PKG DIR 04/30/22 a dose pack (Medrol (Marco)) #21 ea cyclobenzaprine 5 mg tablet 5 mg PO TID PRN muscle spasm #20 07/06/22 tabs albuterol sulfate 90 mcg/actuation 2 puff inhalation Q6H PRN 08/03/22 aerosol inhaler bronchospasm #8.5 grams citalopram 20 mg tablet 20 mg PO DAILY #90 tabs 08/31/22 pantoprazole 40 mg tablet,delayed 40 mg PO DAILY #30 tabs 01/02/23 release (Protonix) ondansetron 4 mg disintegrating 4 mg PO Q8H PRN nausea and 04/06/23 tablet vomiting #9 tabs ondansetron 4 mg disintegrating 4 mg PO TID-QID PRN nausea and 04/06/23 tablet vomiting #10 tabs Allergies Allergy/AdvReac Type Severity Reaction Status Date / Time aspirin Allergy Severe Head Verified 04/06/23 16:29 pressure ibuprofen [From Motrin] Allergy Verified 04/06/23 16:29 NSAIDS (Non-Steroidal Allergy Verified 04/06/23 16:29 Anti-Inflamma Review of Systems <Vijaya Beal PA-C - Last Filed: 04/06/23 20:32> Review of Systems Narrative: See HPI Patient History <Vijaya Beal PA-C - Last Filed: 04/06/23 20:32> Medical History Anxiety Asthma Nasal polyposis Social History Smoking Status: Never smoker Smoking Status: Never smoker alcohol intake frequency: holidays/special occasions only Substance Use Type: does not use Exam <Vijaya Beal PA-C - Last Filed: 04/06/23 20:32> Narrative Exam Narrative: GENERAL: [32] year old patient appears stated age. Well-developed patient, in mild distress, a few times during exam patient stops talking due to experiencing some crampy pain. HEAD: Atraumatic. Normocephalic. EYES: Pupils equal round and reactive. Extraocular motions intact. No scleral icterus. No injection or drainage. ENT: Nose without bleeding, purulent drainage. Airway patent. NECK: Trachea midline. Non tender CARDIOVASCULAR: Regular rate and rhythm without murmurs, gallops, or rubs. RESPIRATORY: Clear to auscultation. Breath sounds equal bilaterally. No wheezes, rales, or rhonchi. GASTROINTESTINAL: Abdomen soft, there is some tenderness present that is nonspecific and does not stay in the same place, initially slightly tender right upper quadrant then slightly tender left lower quadrant, left lower quadrant tenderness resolves within minutes. Repeat cramps seemed to begin in the right upper quadrant and then radiate. Non-tender, nondistended. EXTREMITIES: No edema or joint tenderness. BACK: Nontender without deformity or crepitance. No flank tenderness. NEURO: AOx3. SKIN: No rash or erythema of visible areas Initial Vital Signs Initial Vital Signs: Vital Signs Temperature 98 F 04/06/23 16:25 Pulse Rate 106 H 04/06/23 16:25 Respiratory Rate 22 04/06/23 16:25 Blood Pressure 157/77 H 04/06/23 16:25 Pulse Oximetry 98 04/06/23 16:25 Oxygen Delivery Method Room Air 04/06/23 16:25 <Regine Fang DO - Last Filed: 04/07/23 05:14> Initial Vital Signs Initial Vital Signs: Vital Signs Temperature 98 F 04/06/23 16:25 Pulse Rate 106 H 04/06/23 16:25 Respiratory Rate 22 04/06/23 16:25 Blood Pressure 157/77 H 04/06/23 16:25 Pulse Oximetry 98 04/06/23 16:25 Oxygen Delivery Method Room Air 04/06/23 16:25 Course <Vijaya Beal PA-C - Last Filed: 04/06/23 20:32> Orders Ordered: Discontinued Medications Acetaminophen (Acetaminophen 325 Mg Tablet) 650 mg PO NOW ONE Stop: 04/06/23 19:20 Last Admin: 04/06/23 19:30 Dose: 650 mg Documented By: ANNELISE Sodium Chloride (Normal Saline 0.9%) 1,000 mls @ 1,000 mls/hr IV BOLUS ONE Stop: 04/06/23 20:18 Last Infusion: 04/06/23 20:13 Dose: 0 mls/hr Documented By: Admin: 04/06/23 19:30 Dose: 1,000 mls/hr Documented By: ANNELISE Ondansetron HCl (Ondansetron 4 Mg Odt) 4 mg PO NOW PRN PRN Reason: Nausea And Vomiting Ondansetron HCl (Ondansetron 4 Mg/2 Ml Inj) 4 mg IV NOW PRN PRN Reason: Nausea And Vomiting Last Admin: 04/06/23 16:41 Dose: 4 mg Documented By: PAULA Vital Signs Vital signs: Vital Signs - 8 hr 04/06/23 16:25 04/06/23 17:51 04/06/23 17:52 Temperature 98 F Pulse Rate 106 H 102 H Respiratory Rate 22 Blood Pressure 157/77 H Pulse Oximetry 98 92 100 Oxygen Delivery Method Room Air 04/06/23 17:52 04/06/23 18:00 04/06/23 18:30 Temperature Pulse Rate 88 104 H Respiratory Rate Blood Pressure 127/62 Pulse Oximetry 98 98 Oxygen Delivery Method 04/06/23 18:39 04/06/23 18:39 04/06/23 19:00 Temperature Pulse Rate 96 H Respiratory Rate Blood Pressure 117/75 119/71 Pulse Oximetry 98 Oxygen Delivery Method 04/06/23 19:00 Temperature Pulse Rate 94 H Respiratory Rate Blood Pressure Pulse Oximetry 97 Oxygen Delivery Method <Regine Fang, DO - Last Filed: 04/07/23 05:14> Orders Ordered: Discontinued Medications Acetaminophen (Acetaminophen 325 Mg Tablet) 650 mg PO NOW ONE Stop: 04/06/23 19:20 Last Admin: 04/06/23 19:30 Dose: 650 mg Documented By: ANNELISE Sodium Chloride (Normal Saline 0.9%) 1,000 mls @ 1,000 mls/hr IV BOLUS ONE Stop: 04/06/23 20:18 Last Infusion: 04/06/23 20:13 Dose: 0 mls/hr Documented By: Admin: 04/06/23 19:30 Dose: 1,000 mls/hr Documented By: ANNELISE Ondansetron HCl (Ondansetron 4 Mg Odt) 4 mg PO NOW PRN PRN Reason: Nausea And Vomiting Ondansetron HCl (Ondansetron 4 Mg/2 Ml Inj) 4 mg IV NOW PRN PRN Reason: Nausea And Vomiting Last Admin: 04/06/23 16:41 Dose: 4 mg Documented By: PAULA Vital Signs Vital signs: Vital Signs - 8 hr 04/06/23 16:25 04/06/23 17:51 04/06/23 17:52 Temperature 98 F Pulse Rate 106 H 102 H Respiratory Rate 22 Blood Pressure 157/77 H Pulse Oximetry 98 92 100 Oxygen Delivery Method Room Air 04/06/23 17:52 04/06/23 18:00 04/06/23 18:30 Temperature Pulse Rate 88 104 H Respiratory Rate Blood Pressure 127/62 Pulse Oximetry 98 98 Oxygen Delivery Method 04/06/23 18:39 04/06/23 18:39 04/06/23 19:00 Temperature Pulse Rate 96 H Respiratory Rate Blood Pressure 117/75 119/71 Pulse Oximetry 98 Oxygen Delivery Method 04/06/23 19:00 Temperature Pulse Rate 94 H Respiratory Rate Blood Pressure Pulse Oximetry 97 Oxygen Delivery Method MDM - Abdominal Pain <Vijaya Beal PA-C - Last Filed: 04/06/23 20:32> Differential Diagnosis Differential diagnosis: Likely abdominal pain, acute appendicitis, diverticulitis, gastroenteritis and small bowel obstruction Medical Records Attestation: I reviewed the patient's medical records. Lab Data Attestation: I reviewed the patient's lab results. 04/06/23 16:39 04/06/23 16:39 Labs: Lab Results 04/06/23 04/06/23 04/06/23 Range/Units 16:35 16:39 16:39 WBC 9.5 (4.5-11.0) X10^3/uL RBC 4.63 (4.0-5.2) X10^6/uL Hgb 14.2 (12.0-16.0) g/dL Hct 40.9 (36-46) % MCV 88.3 (80-100) fL MCH 30.6 (26-34) PG MCHC 34.7 (30-36) % RDW 12.9 (11.6-14.8) % Plt Count 225 (150-400) X10^3/uL Neut % (Auto) 82.5 H (50-75) % Lymph % (Auto) 10.1 L (25-40) % [place] % (Auto) 6.8 (3-14) % Eos % (Auto) 0.4 L (2-4) % Baso % (Auto) 0.2 (0-2) % Neut # (Auto) 7800 H (5215-8223) /uL Lymph # (Auto) 1000 L (3817-7575) /uL [place] # (Auto) 600 (0-900) /uL Eos # (Auto) 0 (0-450) /uL Baso # (Auto) 0 (0-100) /uL Sodium 134 L (137-145) mmol/L Potassium 3.7 (3.4-5.1) mmol/L Chloride 99 (98-107) mmol/L Carbon Dioxide 25 (22-32) mmol/L BUN 13 (7-17) mg/dL Creatinine 0.67 (0.52-1.04) mg/dL Estimated GFR > 60 (>60) mL/min BUN/Creatinine Ratio 19.4 (6-22) Glucose 126 H (70-100) mg/dL Lactate 0.9 (0.7-2.1) mmol/L Calcium 9.2 (8.4-10.2) mg/dL Total Bilirubin 0.6 (0.2-1.3) mg/dL AST 24 (14-36) IU/L ALT 18 (<35) IU/L Alkaline Phosphatase 69 (38-126) U/L Total Protein 7.3 (6.3-8.2) g/dL Albumin 4.6 (3.5-5.0) g/dL Globulin 2.7 (1.7-4.1) g/dL Albumin/Globulin Ratio 1.7 (1.0-2.8) Lipase 57 (23-300) U/L Ur Bilirubin Confirm (Negative) Urine RBC (0-5/HPF) Urine WBC (0-5/HPF) Ur Squamous Epith Cells (0-5/HPF) Urine Bacteria (None) Urine Mucus (Negative) Ur Culture Indicated? 04/06/23 Range/Units 18:32 WBC (4.5-11.0) X10^3/uL RBC (4.0-5.2) X10^6/uL Hgb (12.0-16.0) g/dL Hct (36-46) % MCV (80-100) fL MCH (26-34) PG MCHC (30-36) % RDW (11.6-14.8) % Plt Count (150-400) X10^3/uL Neut % (Auto) (50-75) % Lymph % (Auto) (25-40) % [place] % (Auto) (3-14) % Eos % (Auto) (2-4) % Baso % (Auto) (0-2) % Neut # (Auto) (5109-6602) /uL Lymph # (Auto) (0923-3813) /uL [place] # (Auto) (0-900) /uL Eos # (Auto) (0-450) /uL Baso # (Auto) (0-100) /uL Sodium (137-145) mmol/L Potassium (3.4-5.1) mmol/L Chloride (98-107) mmol/L Carbon Dioxide (22-32) mmol/L BUN (7-17) mg/dL Creatinine (0.52-1.04) mg/dL Estimated GFR (>60) mL/min BUN/Creatinine Ratio (6-22) Glucose (70-100) mg/dL Lactate (0.7-2.1) mmol/L Calcium (8.4-10.2) mg/dL Total Bilirubin (0.2-1.3) mg/dL AST (14-36) IU/L ALT (<35) IU/L Alkaline Phosphatase (38-126) U/L Total Protein (6.3-8.2) g/dL Albumin (3.5-5.0) g/dL Globulin (1.7-4.1) g/dL Albumin/Globulin Ratio (1.0-2.8) Lipase (23-300) U/L Ur Bilirubin Confirm Negative (Negative) Urine RBC None seen (0-5/HPF) Urine WBC 1-5/hpf (0-5/HPF) Ur Squamous Epith Cells 1-5 /hpf D (0-5/HPF) Urine Bacteria None seen (None) Urine Mucus 1+ H (Negative) Ur Culture Indicated? Cult not indicated Point of care testing: Point of Care Testing Test Results Negative Urine Dip Bedside Urine Glucose Negative Bedside Urine Bilirubin ++ 2 Bedside Urine Ketone +++ 80 Urine Specific Clyo 1.020 Bedside Urine Occult Blood - Negative Bedside Urine pH 6.0 Bedside Urine Protein +/- 15 Bedside Urine Urobilinogen - Negative Bedside Urine Nitrite - Negative Bedside Urine Leukocytes - Negative Esterase Treatment and Disposition Shared decision making:: Shared decision-making was used in determining patient's plan of care in the emergency department and plan for outpatient follow-up. MDM Narrative Medical decision making narrative: This is a well-appearing 32-year-old female with history of asthma, anxiety, nasal polyps in presents with concern for diarrhea beginning early this morning, with subsequent vomiting episodes and crampy abdominal pain. Labs today are unremarkable including lactate which is 0.9, she has no leukocytosis, no elevated liver enzymes or bili, she has been tolerating small sips of fluid home this afternoon. Do believe she is slightly dehydrated she is given fluids, Zofran upon presentation. Patient has an NSAID allergy and Tylenol was administered. Patient has a nonspecific abdominal exam is quite uncomfortable at times but appears to be crampy abdominal pain likely consistent with a viral gastroenteritis. Did discuss this patient with attending physician Dr. Fang who agrees with plan not to pursue any advanced imaging at this time. Prescription for Zofran, return precautions provided, follow-up plan discussed, all questions answered. <Regine Fang DO - Last Filed: 04/07/23 05:14> Lab Data Labs: Lab Results 04/06/23 04/06/23 04/06/23 Range/Units 16:35 16:39 16:39 WBC 9.5 (4.5-11.0) X10^3/uL RBC 4.63 (4.0-5.2) X10^6/uL Hgb 14.2 (12.0-16.0) g/dL Hct 40.9 (36-46) % MCV 88.3 (80-100) fL MCH 30.6 (26-34) PG MCHC 34.7 (30-36) % RDW 12.9 (11.6-14.8) % Plt Count 225 (150-400) X10^3/uL Neut % (Auto) 82.5 H (50-75) % Lymph % (Auto) 10.1 L (25-40) % [place] % (Auto) 6.8 (3-14) % Eos % (Auto) 0.4 L (2-4) % Baso % (Auto) 0.2 (0-2) % Neut # (Auto) 7800 H (5426-3999) /uL Lymph # (Auto) 1000 L (9435-7085) /uL [place] # (Auto) 600 (0-900) /uL Eos # (Auto) 0 (0-450) /uL Baso # (Auto) 0 (0-100) /uL Sodium 134 L (137-145) mmol/L Potassium 3.7 (3.4-5.1) mmol/L Chloride 99 (98-107) mmol/L Carbon Dioxide 25 (22-32) mmol/L BUN 13 (7-17) mg/dL Creatinine 0.67 (0.52-1.04) mg/dL Estimated GFR > 60 (>60) mL/min BUN/Creatinine Ratio 19.4 (6-22) Glucose 126 H (70-100) mg/dL Lactate 0.9 (0.7-2.1) mmol/L Calcium 9.2 (8.4-10.2) mg/dL Total Bilirubin 0.6 (0.2-1.3) mg/dL AST 24 (14-36) IU/L ALT 18 (<35) IU/L Alkaline Phosphatase 69 (38-126) U/L Total Protein 7.3 (6.3-8.2) g/dL Albumin 4.6 (3.5-5.0) g/dL Globulin 2.7 (1.7-4.1) g/dL Albumin/Globulin Ratio 1.7 (1.0-2.8) Lipase 57 (23-300) U/L Ur Bilirubin Confirm (Negative) Urine RBC (0-5/HPF) Urine WBC (0-5/HPF) Ur Squamous Epith Cells (0-5/HPF) Urine Bacteria (None) Urine Mucus (Negative) Ur Culture Indicated? 04/06/23 Range/Units 18:32 WBC (4.5-11.0) X10^3/uL RBC (4.0-5.2) X10^6/uL Hgb (12.0-16.0) g/dL Hct (36-46) % MCV (80-100) fL MCH (26-34) PG MCHC (30-36) % RDW (11.6-14.8) % Plt Count (150-400) X10^3/uL Neut % (Auto) (50-75) % Lymph % (Auto) (25-40) % [place] % (Auto) (3-14) % Eos % (Auto) (2-4) % Baso % (Auto) (0-2) % Neut # (Auto) (2519-0888) /uL Lymph # (Auto) (7373-9749) /uL [place] # (Auto) (0-900) /uL Eos # (Auto) (0-450) /uL Baso # (Auto) (0-100) /uL Sodium (137-145) mmol/L Potassium (3.4-5.1) mmol/L Chloride (98-107) mmol/L Carbon Dioxide (22-32) mmol/L BUN (7-17) mg/dL Creatinine (0.52-1.04) mg/dL Estimated GFR (>60) mL/min BUN/Creatinine Ratio (6-22) Glucose (70-100) mg/dL Lactate (0.7-2.1) mmol/L Calcium (8.4-10.2) mg/dL Total Bilirubin (0.2-1.3) mg/dL AST (14-36) IU/L ALT (<35) IU/L Alkaline Phosphatase (38-126) U/L Total Protein (6.3-8.2) g/dL Albumin (3.5-5.0) g/dL Globulin (1.7-4.1) g/dL Albumin/Globulin Ratio (1.0-2.8) Lipase (23-300) U/L Ur Bilirubin Confirm Negative (Negative) Urine RBC None seen (0-5/HPF) Urine WBC 1-5/hpf (0-5/HPF) Ur Squamous Epith Cells 1-5 /hpf D (0-5/HPF) Urine Bacteria None seen (None) Urine Mucus 1+ H (Negative) Ur Culture Indicated? Cult not indicated Point of care testing: Point of Care Testing Test Results Negative Urine Dip Bedside Urine Glucose Negative Bedside Urine Bilirubin ++ 2 Bedside Urine Ketone +++ 80 Urine Specific Clyo 1.020 Bedside Urine Occult Blood - Negative Bedside Urine pH 6.0 Bedside Urine Protein +/- 15 Bedside Urine Urobilinogen - Negative Bedside Urine Nitrite - Negative Bedside Urine Leukocytes - Negative Esterase Discharge Plan Departure Patient Disposition: Home Clinical Impression: Abdominal cramping, Nausea, vomiting and diarrhea Activity Restrictions/Additional Instructions: Thank you for letting us be part of your care stay in the emergency department. History and exam were most consistent with a viral gastroenteritis, understands ear having some very uncomfortable crampy abdominal pain, however this should improve with time, I prescribed some Zofran medication for you which was helpful for you in the emergency department today. You can also take Tylenol to see if this is helpful with her discomfort I recommend doing small sips of fluids, we did provide you with IV fluids in the emergency department as well. Your labs today were looking very good. If you have new or persistent symptoms of concern do not hesitate to seek re-evaluation. There is no evidence of an emergent or life threatening illness at this time, but follow up with your doctor in 1-2 days is recommended nonetheless to continue to rule out serious underlying causes of your symptoms. Please call the office for an appointment. Please return to the Emergency Department for any worsening or persistent symptoms. Please take medications as directed. Prescriptions: New ondansetron 4 mg tablet,disintegrating 4 mg PO Q8H PRN (Reason: nausea and vomiting) Qty: 9 0RF No Action methylprednisolone [Medrol (Marco)] 4 mg tablets,dose pack See Rx Instructions PO PER PKG DIR Qty: 21 0RF Rx Instructions: PO PER PKG DIR fluticasone propion-salmeterol [Advair Diskus] 500-50 mcg/dose blister with device 1 inh inhalation DAILY citalopram 20 mg tablet 20 mg PO DAILY Qty: 90 3RF ondansetron 4 mg tablet,disintegrating 4 mg PO TID-QID PRN (Reason: nausea and vomiting) Qty: 10 0RF aspirin 325 mg tablet 325 mg PO DAILY loratadine [Claritin] 10 mg tablet 10 mg PO DAILY fluticasone propionate [Flonase Allergy Relief] 50 mcg/actuation spray,suspension 2 spray intranasal DAILY Rx Instructions: administer into each nostril Mirena 20 mcg/24 hours (7 yrs) 52 mg intrauterine device intrauterine cyclobenzaprine 5 mg tablet 5 mg PO TID PRN (Reason: muscle spasm) Qty: 20 0RF albuterol sulfate 90 mcg/actuation HFA aerosol inhaler 2 puff inhalation Q6H PRN (Reason: bronchospasm) Qty: 8.5 3RF Dupixent Syringe 300 mg/2 mL syringe SUBCUT pantoprazole [Protonix] 40 mg tablet,delayed release (DR/EC) 40 mg PO DAILY Qty: 30 0RF Referrals: Samson Whitaker MD [Primary Care Provider] - Stand Alone Forms: Patient Portal/API <Regine Fang DO - Last Filed: 04/07/23 05:14> Cosign ED Attending Cosignature Attestation: I was immediately available in the department for consultation. Documentation has been reviewed.
[2023-04-06 19:51] LABS: Lactate (Lactic Acid) 0.9 mmol/L (0.7-2.1)
== END 2023-04-06 20:37 | disposition home or self-care (01) ==
PROVIDERS: Emergency Medicine; Emergency Provider Student in an Organized Health Care Education/Training Program; PCP Family Medicine
DX: R10.10 Upper abdominal pain, unspecified (principal); R11.2 Nausea with vomiting, unspecified; R19.7 Diarrhea, unspecified
CPT/HCPCS: 36415; 76705; 80053; 81003; 81015; 81025; 83605; 83690; 85025; 87086; 93005; 96361; 96374; 99284; J2405

== ENCOUNTER → 2023-08-16 15:24 | Outpatient (CLI) | payer OTHER, SELFPAY ==
[2023-08-16 16:05] LABS: Alanine Aminotransferase 20 IU/L (<35); Albumin 4.5 g/dL (3.5-5.0); Albumin Globulin Ratio 1.7 (1.0-2.8); Alkaline Phosphatase 62 U/L (38-126); Aspartate Aminotransferase 26 IU/L (14-36); BUN Creatinine Ratio 18.2 (6-22); Bilirubin Total 0.3 mg/dL (0.2-1.3); Blood Urea Nitrogen 14 mg/dL (7-17); Calcium 9.8 mg/dL (8.4-10.2); Carbon Dioxide 28 mmol/L (22-32); Chloride 104 mmol/L (98-107); Estimated Glomerular Filt Rate > 60 mL/min (>60); Globulin 2.7 g/dL (1.7-4.1); Glucose 87 mg/dL (70-100); HEMOLYSIS < 15 (0-50); Sodium 138 mmol/L (137-145); Total Protein 7.2 g/dL (6.3-8.2)
[2023-08-16 16:36] LABS: TSH w/ Reflex to FT4 1.53 uIU/mL (0.47-4.68)
== END ==
PROVIDERS: PCP Family Medicine; Referring Provider Pediatrics; Visit Provider Pediatrics
DX: L65.9 Nonscarring hair loss, unspecified (principal); R00.2 Palpitations; R53.83 Other fatigue
CPT/HCPCS: 36415; 80053; 84443

== ENCOUNTER → 2023-10-24 16:56 | Outpatient (CLI) | payer OTHER, SELFPAY | PROVIDERS: PCP Family Medicine; Visit Provider Physician Assistant | DX: N89.8 Other specified noninflammatory disorders of vagina (principal) | CPT/HCPCS: 87210 ==

== ENCOUNTER → 2023-10-24 16:59 | Outpatient (CLI) | payer OTHER, SELFPAY ==
[2023-10-24 17:45] LABS: Hemoglobin A1C% w Est Avg Glu 5.2 % (4.0-6.0)
== END ==
PROVIDERS: PCP Family Medicine; Referring Provider Physician Assistant; Visit Provider Physician Assistant
DX: B37.9 Candidiasis, unspecified (principal); N89.8 Other specified noninflammatory disorders of vagina
CPT/HCPCS: 36415; 83036; 87210

== ENCOUNTER 2023-10-26 19:19 | Emergency (ER) | payer OTHER, SELFPAY ==
[2023-10-26 19:26] VITALS: BP 145/82; PULSE 70; RESP 18; TEMP 36.8; O2SAT 100; BMI 25.8
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
[2023-10-26] MEDS: HYDROCODONE/ACET 5/325 TABLET 1 TAB PO (20:16)
[2023-10-26] MEDS: ONDANSETRON 4 MG ODT SL (20:16)
[2023-10-26 20:59] VITALS: BP 140/71; PULSE 63; RESP 16; TEMP 36.9; O2SAT 98
== END 2023-10-26 21:00 | disposition home or self-care (01) ==
PROVIDERS: Emergency Provider Emergency Medicine; PCP Family Medicine
DX: S16.1XXA Strain of muscle, fascia and tendon at neck level, initial encounter (principal); J45.909 Unspecified asthma, uncomplicated; F41.9 Anxiety disorder, unspecified; V49.40XA Driver injured in collision with unspecified motor vehicles in traffic accident, initial encounter; Y93.89 Activity, other specified; Y92.413 State road as the place of occurrence of the external cause; Z79.82 Long term (current) use of aspirin; Z79.51 Long term (current) use of inhaled steroids
CPT/HCPCS: 70450; 70486; 72125; 81025; 99284

== ENCOUNTER → 2023-12-03 11:51 | Outpatient (ROUT) | payer OTHER, SELFPAY | PROVIDERS: Family Provider Family Medicine; PCP Family Medicine; Visit Provider Dermatology | DX: R21 Rash and other nonspecific skin eruption (principal) | CPT/HCPCS: 87070; 87102; 87147; 87205 ==

== ENCOUNTER 2024-01-09 13:45 | Outpatient (RCR) | payer OTHER, SELFPAY ==
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
== END 2024-02-08 08:01 | disposition home or self-care (01) ==
LOC: PHYS 13:45
PROVIDERS: Family Provider Family Medicine; PCP Family Medicine; Referring Provider Physician Assistant; Visit Provider Physician Assistant
DX: S13.4XXA Sprain of ligaments of cervical spine, initial encounter (principal); S06.0XAA Concussion with loss of consciousness status unknown, initial encounter; M54.2 Cervicalgia; V89.2XXD Person injured in unspecified motor-vehicle accident, traffic, subsequent encounter
CPT/HCPCS: 97110; 97112; 97140; 97163; 97533; 97535

== ENCOUNTER → 2024-04-23 13:40 | Outpatient (CLI) | payer OTHER, SELFPAY ==
[2024-04-23 14:38] LABS: BUN Creatinine Ratio 20.3 (6-22); Blood Urea Nitrogen 16 mg/dL (7-17); Calcium 8.9 mg/dL (8.4-10.2); Carbon Dioxide 29 mmol/L (22-32); Chloride 103 mmol/L (98-107); Estimated Glomerular Filt Rate > 60 mL/min (>60); Glucose 150 mg/dL (70-100); HEMOLYSIS < 15 (0-50); Potassium 3.7 mmol/L (3.4-5.1); Sodium 137 mmol/L (137-145)
[2024-04-23 16:46] LABS: Vitamin D 25 Hydroxy (D3) 30.4 ng/mL (30.0-100.0)
== END ==
PROVIDERS: Family Provider Family Medicine; PCP Family Medicine; Referring Provider Nurse Practitioner Family; Visit Provider Nurse Practitioner Family
DX: R25.3 Fasciculation (principal)
CPT/HCPCS: 36415; 80048; 82306